=== PATIENT | male | born 1965 | race Caucasian/White ===

== ENCOUNTER 2019-01-07 15:45 | Emergency (ER) | payer OTHER ==
[~2019-01-07] VITALS: Ht 177.8 cm; Wt 77.3 kg
[2019-01-07 16:27] VITALS: BP 160/97
== END 2019-01-07 18:27 | disposition left against medical advice (07) ==
LOC: EMS 15:48
DX: R07.9 Chest pain, unspecified (principal); R06.02 Shortness of breath; Z53.21 Procedure and treatment not carried out due to patient leaving prior to being seen by health care provider